=== PATIENT | male | born 1960 | race Caucasian/White ===

== ENCOUNTER 2017-01-26 05:30 | Inpatient (IN) | payer OTHER ==
[~2017-01-26 05:30] MED LIST: ceFAZolin 2 GM/DEXTROSE 100 ML IV ONE
[2017-01-26] MEDS ORDERED: DEXAMETHASONE 4 MG/ML VIAL IVP ONE (05:49)
[2017-01-26] MEDS ORDERED: ACETAMINOPHEN 325 MG TAB PO ONE (05:49)
[2017-01-26] MEDS ORDERED: FAMOTIDINE 20 MG TAB PO ONE (05:49)
[2017-01-26] MEDS ORDERED: LIDOCAINE 1% 2 ML INJ ID PRN (05:50)
[2017-01-26] MEDS ORDERED: LR 1,000 ML IV ONE (05:50)
[2017-01-26] MEDS ORDERED: ceFAZolin 2 GM/DEXTROSE 100 ML IV ONE (06:00)
[2017-01-26] MEDS ORDERED: POVIDONE-IODINE 20 ML in SODIUM CL IRRIG SOLUTION 500 ML IRR ONE (06:00)
[2017-01-26] MEDS ORDERED: TRANEXAMIC ACID 1,700 MG in NS 100 ML IV ONE (06:00)
[2017-01-26] MEDS ORDERED: ROPIVACAINE 0.2% 80 MG, EPINEPHrine 0.2 MG, KETOROLAC TROMETHAMINE 30 MG in BAG 0 ML IU ONE (06:00)
[2017-01-26] MEDS ORDERED: ceFAZolin 1 GM/5 ML SYR ONE (06:49)
--- NOTE | 2017-01-26 07:06 | PDHPUP ---
History & Physical Update H&P update statement: This history and physical update is based on an assessment of the patient which was completed after admission or registration (within 24 hours), but prior to the surgery/procedure. H&P update: H&P reviewed & patient examined, no change in patient's condition since H&P completed
[2017-01-26] MEDS ORDERED: MIDAZOLAM 2 MG/2 ML VIAL IVP ONE ×2 (07:07→09:55)
--- NOTE | 2017-01-26 07:07 | PDANEPAE ---
ANE History of Present Illness R hip osteoarthritis ANE Past Medical History - Cardiovascular History Hx Hypertension: No Hx Arrhythmias: No Hx Chest Pain: No Hx Coronary Artery / Peripheral Vascular Disease: No Hx CHF / Valvular Disease: No Hx Palpitations: No - Pulmonary History Hx COPD: No Hx Asthma/Reactive Airway Disease: No Hx Recent Upper Respiratory Infection: No Hx Oxygen in Use at Home: No Hx Sleep Apnea: No Sleep Apnea Screening Result - Last Documented: Negative - Neurologic History Hx Cerebrovascular Accident: No Hx Seizures: No Hx Dementia: No - Endocrine History Hx Diabetes: No - Renal History Hx Renal Disorders: No - Liver History Hx Hepatic Disorders: No - Neurological & Psychiatric Hx Hx Neurological and Psychiatric Disorders: Yes Neurological / Psychiatric History Comment: ANXIETY, DEPRESSION - Cancer History Hx Cancer: No - Congenital Disorder History Hx Congenital Disorders: No - GI History Hx Gastrointestinal Disorders: No - Other Health History Other Health History: PSORIASIS - Chronic Pain History Chronic Pain: Yes (R HIP) - Surgical History Prior Surgeries: KNEE SCOPE L ANE Review of Systems Review of Systems: - Exercise capacity METS (RN): 5 METS ANE Patient History - Allergies Allergies/Adverse Reactions: No Known Allergies Allergy (Unverified 12/16/16 10:48) - Home Medications Home Medications: Clobetasol Propionate [Clobex] 59 ml TP DAILY 12/16/16 [Last Taken Unknown] Glucosamine/Chondroitin [Glucosamine/Chondroitin (*)] 1 each PO DAILY 12/16/16 [ Last Taken 01/16/17] Naproxen Sodium [Aleve 220 MG (*)] 440 mg PO DAILY 12/16/16 [Last Taken 01/15/17 ] Laurel-3 Fatty Acids [Fish Oil 1000 mg (*)] 2,000 mg PO DAILY 12/16/16 [Last Taken 01/19/17] Triamcinolone 0.1% [Triamcinolone 0.1% Cream (*)] 1 girish TP BID 12/16/16 [Last Taken 01/12/17] Venlafaxine Xr [Effexor Xr 75MG (*)] 75 mg PO DAILY 12/16/16 [Last Taken 08:00] - NPO status NPO Since - Liquids (Date): 01/25/17 NPO Since - Liquids (Time): 21:00 NPO Since - Solids (Date): 01/25/17 NPO Since - Solids (Time): 20:00 - Smoking Hx Smoking Status: Never smoked - Family Anes Hx Family Hx Anesthesia Complications: NEG ANE Labs/Vital Signs - Vital Signs Blood Pressure: 137/87 Heart Rate: 58 Respiratory Rate: 16 O2 Sat (%): 95 Height: 176.53 cm Weight: 83.915 kg ANE Physical Exam - Airway Neck exam: FROM Mallampati Score: Class 1 Mouth exam: normal dental/mouth exam - Pulmonary Pulmonary: no respiratory distress - Cardiovascular Cardiovascular: regular rate and rhythym - ASA Status ASA Status: I ANE Anesthesia Plan Anesthesia Plan: MAC, spinal
[2017-01-26] MEDS ORDERED: PROPOFOL/EMULSION 500 MG/50 ML BOTTLE IV ONE (07:11)
[2017-01-26] MEDS ORDERED: fentaNYL 100 MCG/2 ML INJ ONE (07:31)
[2017-01-26] MEDS ORDERED: HYDROmorphONE/DILAUDID 2 MG/ML INJ ONE (08:04)
[2017-01-26] MEDS ORDERED: epHEDrine SULFATE 10 MG/ML SYR ONE (08:11)
[2017-01-26] MEDS ORDERED: PHENYLEPHRINE HCL 100 MCG/ML SYR ONE (08:11)
[2017-01-26] MEDS ORDERED: HYDROmorphONE/DILAUDID 1 MG/ML INJ IVP PRN (08:14)
[2017-01-26] MEDS ORDERED: ONDANSETRON 4 MG/2 ML VIAL IVP PRN ×2 (08:14→09:15)
[2017-01-26] MEDS ORDERED: NALOXONE HCL 0.4 MG/ML INJ IVP PRN (08:14)
[2017-01-26] MEDS ORDERED: fentaNYL 100 MCG/2 ML INJ IVP PRN (08:14)
[2017-01-26] MEDS ORDERED: PROMETHAZINE HCL 25 MG/ML INJ IVP PRN ×2 (08:14→09:15)
--- NOTE | 2017-01-26 09:14 | POSTOPPROG ---
Post Op Note Date of Operation: 01/26/17 Surgeon: Ish Putnam Credit Representative: Familia Doe/Kathi Lisa. Anesthesiologist: To Anesthesia: IV Sedation, Spinal Post-op Diagnosis: Right hip severe degenerative arthritis. Procedure: Right hip [place] hip resurfacing. Inf/Abcess present in the surg proc area at time of surgery?: No EBL: 100-500
[2017-01-26] MEDS ORDERED: MAGNESIUM HYDROXIDE 30 ML UDCUP PO PRN (09:15)
[2017-01-26] MEDS ORDERED: PROMETHAZINE HCL 25 MG SUPPR PR PRN (09:15)
[2017-01-26] MEDS ORDERED: traMADol 50 MG TAB PO PRN (09:15)
[2017-01-26] MEDS ORDERED: METOCLOPRAMIDE 10 MG/2 ML VIAL IVP PRN (09:15)
[2017-01-26] MEDS ORDERED: LACTULOSE 20 GM/30 ML UDCUP PO PRN (09:15)
[2017-01-26] MEDS ORDERED: POLYETHYLENE GLYCOL 3350 17 GM PKT PO PRN (09:15)
[2017-01-26] MEDS ORDERED: DIPHENOXYLATE/ATROPINE LOMOTIL 1 TAB PO PRN (09:15)
[2017-01-26] MEDS ORDERED: TEMAZEPAM 15 MG CAP PO PRN (09:15)
[2017-01-26] MEDS ORDERED: BISACODYL 10 MG SUPP PR PRN (09:15)
[2017-01-26] MEDS ORDERED: KETOROLAC 30 MG/1 ML SDV IVP PRN (09:15)
[2017-01-26] MEDS ORDERED: ONDANSETRON DISINTEGRATING 4 MG TAB PO PRN (09:15)
[2017-01-26] MEDS ORDERED: TAPENTADOL HCL 50 MG TAB PO PRN (09:15)
[2017-01-26] MEDS ORDERED: diphenhydrAMINE 25 MG CAP PO PRN (09:15)
[2017-01-26] MEDS ORDERED: CYCLOBENZAPRINE 10 MG TAB PO PRN (09:15)
[2017-01-26] MEDS ORDERED: LR 1,000 ML IV SCH (09:30)
--- NOTE | 2017-01-26 09:35 | POSTANESTH ---
Post Anesthetic Evaluation Cardiovascular Status: Normal, Stable Respiratory Status: Normal, Stable Level of Consciousness/Mental Status: Can Participate in Eval Pain Control: Adequate, Prn Tx Ordered Nausea/Vomiting Control: Adequate, Prn Tx Ordered Complications Possibly Related to Anesthesia: None Noted
--- NOTE | 2017-01-26 10:12 | GOP ---
[f rep st] OPERATIVE REPORT DATE OF OPERATION: 01/26/2017 SURGEON: Ish Putnam MD WEIGHT ANALYST: Familia Doe CFA and Kathi Lisa RN. ANESTHESIA: Combination of Marcaine, spinal, and IV sedation. ANESTHESIOLOGIST: Dr. Devi Ariza. PREOPERATIVE DIAGNOSIS: Right hip advanced degenerative arthritis. POSTOPERATIVE DIAGNOSIS: Right hip advanced degenerative arthritis. PROCEDURE PERFORMED: On 01/26/2017, right hip [place] hip resurfacing arthroplasty. FINDINGS: DESCRIPTION OF PROCEDURE: The patient was given 2 g of IV Ancef preoperatively within 60 minutes of surgery. He also received IV tranexamic acid at a dose of 20 mg/kg. He was placed on the operating room table and given spinal anesthesia with Marcaine by Dr. Ariza. He was then placed supine and gi danial IV sedation. A Santos catheter was not used. He wore a compressive stocking and SCD on the nonop erative leg. He was rolled to the left lateral decubitus position. An axillary roll was used, and a ll pressure points were carefully padded. The position was secured with the pegboard table attachmen t. I was careful to lock his pelvis in a rigid vertical position. His perineum was isolated with pl astic adhesive drapes. The right hip and right lower extremity were prepped with ChloraPrep. They w ere draped free using sterile sheets, stockinette, and Ioban plastic drapes. The [employer] time-out was performed to verify the correct patient identity and the c orrect surgical side and site. The [place] time-out was also performed. I made a 7-inch straight oblique posterolateral hip skin incision. The subcutaneous tissues were sha rply divided, and hemostasis was obtained using electrocautery. The fascia jenae was identified and s plit along the axis of its fibers. I then curved posteriorly and proximally split the fascia of the gluteus harriett and bluntly split the muscle fibers in line with their orientation. His sciatic nerv e was identified and protected throughout the procedure. The Charnley self-retaining retractor was i nserted. The external rotators and the posterior hip capsule were divided as separate layers at the base of the femoral neck, tagged, and reflected posteriorly. The gluteus harriett tendon was divided and tagged in order to improve exposure and release tension on the sciatic nerve. The hip was disloc ated posteriorly. I used a sizing gauge to check the diameter of the neck and concluded that 48 mm w as the proper head size. I performed a circumferential capsulotomy. I was able to retract the femor al head anteriorly and superiorly and hold it out of place with appropriate retractors. The remnant of his damaged labrum was excised. His acetabulum was reamed sequentially up to 53 mm. I selected lico Flynn monoblock porous-coated acetabular component with an outside diameter of 54 mm. This w as firmly impacted and was a very tight fit. I was careful to determine proper inclination and antev ersion. I used the transverse acetabular ligament and other acetabular bony landmarks to help me pro perly orient the cup. Some moderate-sized posterior-inferior osteophytes were removed with an osteot ome and rongeur. I was careful to leave a good lip of bone and capsule extending beyond the anterior -inferior lip of the metal cup. I then returned to preparation of the femoral head. Using appropriate jigs and guides, I inserted a guide pin into the femoral head and neck. I was careful to position it in such a way that there woul d be no notching of the neck. The large sterile metal goniometer was used to check the neck shaft an gle. I reamed over the guide pin and inserted the reaming guide. I then used the cylindrical reamer down to the head and neck junction. This was followed by the flat reamer and the chamfer reamer. Lico hansen head was sized for 48 mm. There was no impingement or damage to the neck. He had good quality zaheer ne in his femoral head. I drilled a small hole in the lesser trochanter and inserted a suction cannu la to create negative pressure in the medullary canal. Small holes were drilled on the flattened donell mfer surfaces of the head for cement anchors. He had one 3 mm cyst on the superior aspect of the fem oral head, which I curetted and left as a cement anchor hole. The head was thoroughly cleaned with lico hansen pulsating lavage and carefully dried. I used a CarboJet device to blow dry the cancellous surface s. A single batch of Simplex cement with tobramycin was mixed. At about 50 seconds, I poured the li quid cement into the head component, inserted it onto the prepared femoral head and impacted it into place. Excess cement was removed before it hardened. The acetabulum was irrigated, cleaned, and ins pected, and the hip was reduced. Stability and range of motion were checked. I placed my finger pedro luis ng the anterior aspect of the acetabulum and flexed the hip to 110 degrees. There was no anterior im pingement. The suction cannula on the lesser trochanter was removed. The wound was thoroughly irrig ated with a dilute Betadine solution. 40 mL of the joint anesthetic cocktail were injected into the capsule, the deep musculature, and subcutaneous tissues along the skin edges. His sciatic nerve was reinspected and looked unharmed. The external rotators and the posterior hip c apsule were repaired in separate layers with #2 FiberWire sutures through drill holes in the greater trochanter. This provided a strong posterior capsular and external rotator repair. The gluteus maxi mus tendon was repaired with 2 interrupted [id number] #2 FiberWire sutures. The fascia jenae was repaired first with 2 interrupted [id number] #2 FiberWire sutures followed by a running #2 mickey ed Ethicon Stratafix PDO suture. Subcutaneous tissues were closed with a running [address]atafix Monoderm suture. The skin was closed with a running 3-0 barbed Ethicon Stratafix Monoderm lara bcuticular suture. The skin edges were reapproximated and sealed with Dermabond glue. The wound was covered with an Aquacel AG dressing. The estimated blood loss was about 300 mL. I used a [employer] [place] hip resurfacing system. The acetabular component was 54 mm in d iameter and press-fit. The femoral head was 48 mm and cemented. He was awakened from anesthesia and rolled to the supine position on his [facility]. A long-leg compressive stocking and SCD were applied to the operative leg. He wore a stocking and SCD on the opposite leg during the procedure. An abduction pillow was placed between his knees. He was taken to PACU in satisfactory condition. T here were no recognized intraoperative complications. The sponge and needle count were correct on 2 occasions. Familia Doe CFA and Kathi Lisa RN acted as surgical assistants. Their assistance was a medical necessity for safe completion of the procedure. /[id number]/MODL
[2017-01-26] MEDS: ACETAMINOPHEN 325 MG TAB PO SCH ×3 (12:27→23:18)
[2017-01-26] MEDS: TRANEXAMIC ACID 650 MG TAB PO SCH ×4 (12:59→23:17)
[2017-01-26] MEDS: ceFAZolin 2 GM/DEXTROSE 100 ML IV SCH ×2 (14:25→23:20)
[2017-01-26] MEDS: oxyCODONE IR 5 MG TAB PO PRN (20:04)
[2017-01-26] MEDS: ASPIRIN 325 MG TAB PO SCH (20:04)
[2017-01-26] MEDS: SENNOSIDES/DOCUSATE SODIUM TAB PO SCH (20:04)
[2017-01-26] MEDS: FAMOTIDINE 20 MG TAB PO SCH (20:04)
[2017-01-26] MEDS: TRIAMCINOLONE 0.1% 15 GM CRTUBE TP SCH (20:06)
[2017-01-27] MEDS: TRANEXAMIC ACID 650 MG TAB PO SCH (04:50)
[2017-01-27] MEDS: ACETAMINOPHEN 325 MG TAB PO SCH (04:50)
[2017-01-27 05:42] LABS: HEMATOCRIT 33.8 % (40.0-51.0); HEMOGLOBIN 11.4 g/dL (13.7-17.5)
[2017-01-27 07:36] VITALS: BP 129/82; PULSE 63; RESP 18; TEMP 98; O2SAT 96
--- NOTE | 2017-01-27 08:28 | SOAPPROG ---
SOAP Progress Note Assessment/Plan: Assessment: POD #1, s/p R BHR H/H ok. VSS. Normal sciatic nerve function. Dressing clean and dry. Post op films look good. Mild pain. Plan: D/c to home later today. 01/27/17 08:25 Objective: Vital Signs Temp Pulse Resp BP Pulse Ox 36.7 C 63 18 129/82 H 96 01/27/17 07:33 01/27/17 07:33 01/27/17 07:33 01/27/17 07:33 01/27/17 07:33 Laboratory Results 01/27/17 05:28 01/26/17 01/27/17 01/28/17 05:59 05:59 05:59 Intake Total 3417 Output Total 1625 Balance 1792 ICD10 Worksheet Patient Problems: Problems Problem Status Onset Osteoarthritis of right hip Acute
[2017-01-27] MEDS: oxyCODONE IR 5 MG TAB PO PRN (08:29)
[2017-01-27] MEDS ORDERED: FERROUS SULFATE 140 MG TAB.ER PO SCH (09:00)
[2017-01-27] MEDS ORDERED: CLOBETASOL PROPIONATE TP SCH (09:00)
[2017-01-27] MEDS ORDERED: VENLAFAXINE XR 75 MG CAP PO SCH (09:00)
[2017-01-27] MEDS: ASPIRIN 325 MG TAB PO SCH (09:01)
[2017-01-27] MEDS: FAMOTIDINE 20 MG TAB PO SCH (09:02)
[2017-01-27] MEDS: TRIAMCINOLONE 0.1% 15 GM CRTUBE TP SCH (09:11)
[2017-01-27] MEDS: SENNOSIDES/DOCUSATE SODIUM TAB PO SCH (09:12)
--- NOTE | 2017-01-27 10:29 | ASMTCMCOM ---
CM Note CM Note Notes: Met with patient and to discuss discharge poc. Patient lives in [place] with . He has all DME in place at home. Patient declines the need for home health care, has been cleared by PT/OT. Anticipate discharge home today with today. Case Management available should needs arise. Date Signed: 01/27/2017 10:29 AM Electronically Signed By:Megha Esposito RN
--- NOTE | 2017-01-27 12:46 | ASDISCHSUM ---
Discharge Information Plan Status:Home with No Needs Medically Cleared to Leave: Discharge Date:01/27/2017 11:42 AM CM D/C Disposition:Home, Routine, Self-Care ADT D/C Disposition:Home, Routine, Self-Care Projected Discharge Date:01/27/2017 11:42 AM Transportation at D/C:Family Discharge Delay Reason: Follow-Up Date:01/27/2017 11:42 AM Discharge Slot: Final Diagnosis: Placement Information Patient Contact Information Contact Name:LIZZY Relationship: Address:[address] Home Phone: City:[place] Alternate Phone: [facility]/Zip Code:[place] [address] Email: Financial Information Financial Class:HMO and PPO Plans Primary Plan Desc:[employer] Primary Plan Number:[id number] Secondary Plan Desc: Secondary Plan Number: Assessment Information [facility] CM Progress Note CM Note CM Note Notes: Met with patient and to discuss discharge poc. Patient lives in [place] with . He has all DME in place at home. Patient declines the need for home health care, has been cleared by PT/OT. Anticipate discharge home today with . Case Management available should needs arise. Date Signed: 01/27/2017 10:29 AM Electronically Signed By:Megha Esposito RN Intervention Information
== END 2017-01-27 11:42 | disposition home or self-care (01) | DRG 470 ==
LOC: F3N 05:30
PROVIDERS: ADMIT Orthopaedic Surgery; ATTEND Orthopaedic Surgery
PROC: 0SR90J9 Replacement of Right Hip Joint with Synthetic Substitute, Cemented, Open Approach (ICD-10-PCS; principal; 2017-01-26 07:15)
DX: M16.11 Unilateral primary osteoarthritis, right hip (principal)
CPT/HCPCS: 97116-GP; 97161-GP; 97165-GO; C1713; C1769; J0171; J0690; J1100; J1170; J1885; J2250; J2370; J2704; J2795; J3010